=== PATIENT | female | born 1970 | race African-American/Black ===

== ENCOUNTER 2018-09-02 06:11 | Emergency (ER) | payer MEDICARE ==
[2018-09-02] MEDS ORDERED: Acetaminophen 500 MG TAB ONE (07:16)
[2018-09-02] MEDS ORDERED: Dexamethasone 10 MG/ML VIAL ONE (07:16)
[2018-09-02] MEDS ORDERED: Azithromycin 250 MG TAB ONE (07:16)
--- NOTE | 2018-09-02 08:46 | RAD ---
TWO VIEWS OF THE CHEST: Comparison: 06-17-18 History: Upper back pain and cough. FINDINGS: Two views of the chest show normal sized cardiomediastinal silhouette. There is no evidence of consol idation, mass, or pleural effusion. The bones are unremarkable. IMPRESSION: No evidence of acute cardiopulmonary disease. POS: [facility]
== END 2018-09-02 07:43 | disposition home or self-care (01) ==
LOC: ERS 06:11
DX: R05 Cough (principal); I27.9 Pulmonary heart disease, unspecified; I05.9 Rheumatic mitral valve disease, unspecified; I12.0 Hypertensive chronic kidney disease with stage 5 chronic kidney disease or end stage renal disease; N18.6 End stage renal disease; Z79.899 Other long term (current) drug therapy
CPT/HCPCS: 71046; 94640; 96372; J1100; J7620

== ENCOUNTER 2018-12-17 10:39 | Day surgery (SDC) | payer MEDICARE ==
[2018-12-17 23:13] VITALS: BP 105/54; TEMP 98.6
== END 2018-12-17 23:00 | disposition home or self-care (01) ==
LOC: SDC/OP 10:39 → ONC 10:39 → SDC/OP 23:00
PROVIDERS: ATTEND Internal Medicine Nephrology
PROC: 30233N1 Transfusion of Nonautologous Red Blood Cells into Peripheral Vein, Percutaneous Approach (ICD-10-PCS; principal; 2018-12-17)
DX: N18.6 End stage renal disease (principal); D63.1 Anemia in chronic kidney disease; Z88.8 Allergy status to other drugs, medicaments and biological substances
CPT/HCPCS: 36430; 86850; 86900; 86901; 86920; P9016; 36415

== ENCOUNTER 2019-01-04 09:49 | Day surgery (SDC) | payer MEDICARE ==
[2019-01-01 14:20] VITALS: BMI 39.4
[2019-01-04] MEDS ORDERED: Ketamine 50 MG/ML (10ML VIAL) ONE (10:47)
--- NOTE | 2019-01-04 13:35 | OP ---
DATE OF PROCEDURE: 01/04/2019 PROCEDURES PERFORMED: Esophagogastroduodenoscopy/push enteroscopy with control of hemorrhage, snare polypectomy, and submucosal injection of tattoo and biopsy. PREOPERATIVE DIAGNOSES: Chronic GI bleed and anemia of chronic blood loss with abnormal capsule endoscopy showing site of active bleeding in the proximal small intestine. DESCRIPTION OF PROCEDURE: Informed consent was obtained from the patient. She was sedated with total intravenous anesthesia. The colonoscope was used and advanced to the proximal jejunum. The esophagus was normal. The GE junction was normal. The stomach was normal including retroflex views. The pylorus and first portion and second portion of the duodenum were unremarkable. The third portion of the duodenum had a 1 cm flat, slightly depressed polyp with a smooth base. Biopsies were obtained from this. There was a second polyp in the fourth portion of the duodenum. This was actively bleeding throughout the case. This measured around 6 to 7 mm and was grasped with a polypectomy snare and removed by snare cautery polypectomy. There was good hemostasis achieved with the polypectomy. A tattoo was placed next to this polyp in the fourth portion of the duodenum. There were multiple small red spots and possible vascular ectasias throughout the third and fourth portions of the duodenum. The proximal jejunum appeared unremarkable. The third portion of the duodenal polyp was about 8 cm proximal to the polypectomy site and tattoo site in the fourth portion of the duodenum. IMPRESSION: 1. Scattered AVMs and red spots in the third and fourth portions of the duodenum. These were not actively bleeding and left alone. 2. Actively bleeding 6 to 7 mm polyp in the fourth portion of the duodenum that was removed by snare cautery polypectomy with good control of the bleeding. There was no active bleeding following the polypectomy. Tattoo was placed next to this site. 3. 1 cm depressed smooth based polyp in the third portion of the duodenum about 8 cm proximal to the tattoo site. This was biopsied. 4. Otherwise normal esophagogastroduodenoscopy/push enteroscopy. RECOMMENDATIONS: 1. Await histopathology. 2. Follow trend of her hemoglobin. 3. Follow up in GI clinic. Job ID: [id number]
[2019-01-04] MEDS ORDERED: PHENYLEPHRINE-NS 100 MCG/ML 10 ML SYRINGE ONE (15:30)
[2019-01-04] MEDS ORDERED: PROPOFOL 200 MG/20 ML VIAL ONE (15:30)
== END 2019-01-04 13:05 | disposition home or self-care (01) ==
LOC: SDC 09:49
PROVIDERS: ATTEND Internal Medicine Gastroenterology
PROC: 0DB98ZX Excision of Duodenum, Via Natural or Artificial Opening Endoscopic, Diagnostic (ICD-10-PCS; principal; 2019-01-04)
PROC: 0DB98ZX Excision of Duodenum, Via Natural or Artificial Opening Endoscopic, Diagnostic (ICD-10-PCS; 2019-01-04)
PROC: 3E0G8GC Introduction of Other Therapeutic Substance into Upper GI, Via Natural or Artificial Opening Endoscopic (ICD-10-PCS; 2019-01-04)
DX: K29.81 Duodenitis with bleeding (principal); D50.0 Iron deficiency anemia secondary to blood loss (chronic); K31.7 Polyp of stomach and duodenum; K31.819 Angiodysplasia of stomach and duodenum without bleeding; I13.2 Hypertensive heart and chronic kidney disease with heart failure and with stage 5 chronic kidney disease, or end stage renal disease; I50.9 Heart failure, unspecified; N18.6 End stage renal disease; I42.9 Cardiomyopathy, unspecified; Z79.899 Other long term (current) drug therapy; Z88.8 Allergy status to other drugs, medicaments and biological substances; Z91.048 Other nonmedicinal substance allergy status; Z99.2 Dependence on renal dialysis; Z21 Asymptomatic human immunodeficiency virus [HIV] infection status
CPT/HCPCS: 88305; J2704

== ENCOUNTER 2019-02-10 07:52 | Day surgery (SDC) | payer MEDICARE ==
[2019-02-09 13:45] VITALS: BMI 39.0
--- NOTE | 2019-02-10 11:22 | OP ---
DATE OF PROCEDURE: 02/10/2019 PROCEDURES PERFORMED: Esophagogastroduodenoscopy and push enteroscopy with biopsy. PREOPERATIVE DIAGNOSES: Iron deficiency anemia and duodenal polyp followup. DESCRIPTION OF PROCEDURE: Informed consent was obtained from the patient. She was sedated with total intravenous anesthesia. The bite block was placed and the colonoscope was advanced through the mouth to the proximal jejunum. The previous tattoo side in the proximal jejunum showed no residual polyp. About 8 cm proximal to this in either the third or fourth portion of the duodenum was a 1.4 cm flat polyp with the smooth surface. This was the same polyp that was biopsied in previous procedure. This was biopsied again multiple times today. No other bleeding sites were identified in the small intestine. The stomach was unremarkable including retroflex views. A small hiatal hernia was present. The esophagus was unremarkable. IMPRESSION: 1. A 1.4 cm flat polyp with a smooth surface, biopsied. This is located in the third or fourth portion of the duodenum, about 8 cm proximal to the previous tattoo site. 2. No residual polyp at the tattoo site. 3. No other bleeding sites identified. RECOMMENDATIONS: 1. Await histopathology. 2. Follow up in the office. Job ID: [id number]
[2019-02-10] MEDS ORDERED: PROPOFOL 200 MG/20 ML VIAL ONE (15:07)
[2019-02-10] MEDS ORDERED: Lidocaine 1% PF 5 ML VIAL ONE (15:07)
== END 2019-02-10 11:15 | disposition home or self-care (01) ==
LOC: SDC 07:52
PROVIDERS: ATTEND Internal Medicine Gastroenterology
PROC: 0DB98ZX Excision of Duodenum, Via Natural or Artificial Opening Endoscopic, Diagnostic (ICD-10-PCS; principal; 2019-02-10)
DX: D13.2 Benign neoplasm of duodenum (principal); D50.9 Iron deficiency anemia, unspecified; K44.9 Diaphragmatic hernia without obstruction or gangrene; N18.6 End stage renal disease; Z88.8 Allergy status to other drugs, medicaments and biological substances; Z91.09 Other allergy status, other than to drugs and biological substances; Z79.899 Other long term (current) drug therapy
CPT/HCPCS: 88305; J2001; J2704

== ENCOUNTER 2020-10-25 10:51 | Observation (INO) | payer MEDICARE ==
--- NOTE | 2020-10-25 11:45 | RAD ---
CHEST 2 VIEWS: Date: 10/25/2020 HISTORY: Chest pain. FINDINGS: Minimal horizontal linear parenchymal change in the left lower mid lung zone, possibly a small area o f scarring or minimal subsegmental atelectasis. No significant cardiomegaly. No confluent pneumonia, overt edema, or pleural effusion. IMPRESSION: 1. No significant acute intrathoracic disease. 2. Small focus of linear horizontal density in the left lower mid lung zone, possibly a small focus of subsegmental atelectasis or mild scarring since the prior study of 09/02/2018. POS: OFF
[2020-10-25 12:04] LABS: #Eosinphils 0.1 thou/uL (0.0-0.7); #Lymphocytes 1.9 thou/uL (1.20-3.40); #Monocytes 0.8 thou/uL (0.11-0.59); #Neutrophils 8.1 thou/uL (1.40-6.50); %Basophils 0.4 % (0.0-1.0); %Eosinophils 0.7 % (0.0-10.0); %Lymphocytes 17.2 % (21.0-51.0); %Monocytes 7.7 % (0.0-10.0); %Neutrophils 74.1 % (42.0-75.0); Hemoglobin 10.6 g/dL (12.0-16.0); Mean Corpuscular HGB CONC 31.7 g/dL (32.0-36.0); Mean Corpuscular Volume 94.4 fL (78.0-98.0); Mean Platelet Volume 9.8 fL (7.4-10.4); Platelet Count 146 thou/uL (130-400); Red Blood Cell (RBC) Count 3.54 mill/uL (4.20-5.40); White Blood Cell (WBC) Count 10.9 thou/uL (4.8-10.8)
[2020-10-25 12:17] LABS: PTT 29.3 sec (22.9-36.1); Prothrombin Time 13.3 sec (12.0-14.7)
[2020-10-25 12:24] LABS: ALT (SGPT) Less than 7 U/L (8-55); AST (SGOT) 11 U/L (5-34); Albumin 4.2 g/dL (3.5-5.0); Alkaline Phosphatase 69 U/L (40-110); Anion Gap 19 mmol/L (10-20); BUN (Urea Nitrogen) 34 mg/dL (9.8-20.1); Bilirubin, Total 0.8 mg/dL (0.2-1.2); Calc. Creatinine Clearance 0 mL/min (70-130); Calcium 8.9 mg/dL (7.8-10.44); Carbon Dioxide 28 mmol/L (22-29); Chloride 98 mmol/L (98-107); Globulin 4.1 g/dL (2.4-3.5); Glucose 92 mg/dL (70-105); Lipase 54 U/L (8-78); Magnesium 2.1 mg/dL (1.6-2.6); Potassium 4.4 mmol/L (3.5-5.1); Protein, Total 8.3 g/dL (6.0-8.3); Sodium 141 mmol/L (136-145)
[2020-10-25 12:45] LABS: CKMB 0.6 ng/mL (0-6.6)
[2020-10-25] MEDS ORDERED: Iopamidol-370 76% 500 ML 1 ML ONE (12:53)
[2020-10-25] MEDS ORDERED: Iopamidol 370 76% 50 ML VIAL FS ONE (12:56)
--- NOTE | 2020-10-25 15:45 | CT ---
Exam: CTA chest with 3-D rendering: CTA abdomen with 3-D rendering: HISTORY: Epigastric pain. COMPARISON: None TECHNIQUE: CT angiogram of the thoracic and abdominal aorta performed in the axial plane. Three-dimen sional reformatted images are submitted for interpretation. FINDINGS: Chest CT: Mediastinum: No mass, lymphadenopathy or hematoma Heart: Normal heart size. No significant pericardial fluid. Coronary arteries: Significant coronary calcified Trachea and central bronchi: Patent Pleural spaces: No pleural effusion. Right lung: Scarring and atelectasis in the lower lobe Left lung: Scarring and atelectasis in the lower lobe Pneumothorax: None Abdomen CT: Gallbladder: Surgically absent Portal vein: Cannot be assessed due to technique Solid organs: Appropriate arterial phase enhancement of the liver, spleen, pancreas and adrenal gland s Kidneys: Symmetric enhancement. No obstructive uropathy. Mesentery: No mass, lymphadenopathy or free air. There is stranding of the abdominal mesentery adjace nt to the greater curvature of the stomach, the left upper quadrant. This hypodensity focus measures 3.7 x 2.8 cm with attenuation coefficient of 39 Hounsfield units. There is a probable small spine the left upper quadrant measuring 1.1 x 1.1 cm. Alimentary canal: Limited evaluation by the lack of oral contrast. No evidence of a bowel obstruction . Normal ileocecal . Osseous structures: No lytic or blastic lesions. CT ANGIOGRAM: No CT evidence for aortic aneurysm or dissection. IMPRESSION: 1. No CT evidence for aortic aneurysm or aortic dissection. 2. Hypo-attenuation in the left upper quadrant as described above. Attenuation is adjacent to the gre ater curvature stomach. There appears to be continuity. Correlate for possible perforated ulcer. Consider GI consult. Results of study discussed with Taniya Meehan12/26/2019 at 3:40 PM Code CR
[2020-10-25] MEDS ORDERED: Piperacillin/Tazobactam 2.25 GM VIAL ONE (17:16)
[2020-10-25] MEDS ORDERED: Pantoprazole 40 MG VIAL ONE (17:19)
[2020-10-25 19:09] LABS: Iron 24 ug/dL (50-170); Iron Binding Capacity, Total 200 mcg/dL (265-497)
--- NOTE | 2020-10-25 19:13 | HP ---
PRIMARY CARE PHYSICIAN: Dr. Bryce Jacobs. CHIEF COMPLAINT: Chest pain. HISTORY OF PRESENT ILLNESS: The patient is a 50-year-old female with a past medical history significant for end-stage renal disease (), followed by Dr. Napoles, HIV (on HAART therapy), cardiomyopathy, HTN, HLD, and anxiety, who presents to the emergency department for the above complaint. The patient reports the acute onset of chest pain last night, located in the epigastric region, radiating around to the back, exacerbated by lying down, and relieved by sitting up. She trialed Tums with no relief of her symptoms. She reports some associated shortness of breath, nausea. She denies hemoptysis and vomiting. She denies any heart palpitations, lightheadedness, or swelling to lower extremities. She denies any cough, wheezing. Has no history of COPD/asthma. No history of DVT/PE. She denies heavy use of NSAIDs or alcohol intake. No recent surgeries. In the emergency department, the patient presented with stable vital signs. CT angio of the chest was negative for aneurysm and aortic dissection. It did show hypoattenuation in the left upper quadrant of the greater curvature of the stomach, which was correlate for possible perforated ulcer. Her hemoglobin was 10.6, hematocrit 33.5. WBC is 10.9. Coags were within normal limits. General Surgery and GI were consulted in the emergency department and recommended no surgical intervention at this time and trend her hemoglobin throughout the evening. The patient was given 1 L normal saline, Zosyn IVPB, and started on Protonix drip. PAST MEDICAL HISTORY: 1. End-stage renal disease, Tuesdays, , Saturdays, followed by Dr. Napoles. 2. HIV on HAART therapy. 3. Hyperlipidemia. 4. Hypertension. 5. Cardiomyopathy. 6. Anxiety. 7. GERD. PAST SURGICAL HISTORY: 1. Cholecystectomy. 2. Left upper extremity fistula. SOCIAL HISTORY: The patient lives alone. She has no history of heavy alcohol intake, smoking, or illicit drug use. She is retired. She is fully independent, walks without any assistive devices. FAMILY HISTORY: Contributory for cardiac disease, cancer, diabetes. ALLERGIES: 1. HYDROCHLOROTHIAZIDE. 2. ADHESIVES. HOME MEDICATIONS: 1. Protonix 40 mg p.o. daily. 2. Atorvastatin 10 mg p.o. daily. 3. Coreg 25 mg p.o. b.i.d. 4. Lisinopril 10 mg p.o. daily. 5. Tivicay 50 mg daily. 6. Prezcobix 800/150 one tab p.o. daily. REVIEW OF SYSTEMS: All review of systems are negative unless otherwise stated in the HPI. PHYSICAL EXAMINATION: VITAL SIGNS: Temperature 98.6, blood pressure 142/76, heart rate 67, respirations 16, SpO2 is 100% on room air. CONSTITUTIONAL: The patient presented normotensive, appeared comfortable, nontoxic in appearance. HEENT: Head, atraumatic, normocephalic. Eyes, pupils equal, round, and reactive to light. Extraocular muscles intact. Sclerae nonicteric. ENT, oropharynx were clear. Uvula midline. Moist mucous membranes. No pallor. NECK: Full range of motion. No cervical spinous tenderness. Neck was supple. RESPIRATORY/CHEST: Respirations even and unlabored. Clear to auscultation. No rhonchi, wheezes, or rales. CARDIOVASCULAR: S1, S2 appreciated. No murmurs, rubs, or gallops. ABDOMEN: Soft, nontender, nondistended. Active bowel sounds. No guarding. No rigidity. No rebound. Negative Rovsing sign. Negative Abarca sign. No abdominal bruit appreciated. BACK: Full range of motion. No central spinous tenderness. No CVA tenderness. EXTREMITIES: Upper extremities; full range of motion, normal strength, sensation intact, palpable radial pulses. Lower extremities; full range of motion, normal strength, sensation intact, palpable pedal pulses. No swelling. NEUROLOGIC: She was A and O x4. Follows all commands. GCS of 15. PSYCHIATRIC: Denies suicidal or homicidal ideation. A and O x3. LABS AND DIAGNOSTICS: 1. EKG, normal sinus rhythm at 70 beats per minute. LVH, no ST elevations. 2. Chest x-ray was negative for any acute cardiopulmonary process. 3. CTA chest was negative for any aneurysm or aortic dissection. There was a hypoattenuation in the left upper quadrant adjacent to the greater curvature of the stomach, correlate for possible perforated ulcer. Sodium 141, potassium 4.4, chloride 98, carbon dioxide 28, BUN 34, creatinine 10.12, GFR 5, glucose 92, lactic acid 1.1, calcium 8.9, magnesium 2.1, total bilirubin 0.8, AST 11, ALT less than 7, alkaline phosphatase 69, troponin 0.034, CK-MB 0.6. Lipase was 54. Albumin 4.2. WBCs 10.9, hemoglobin 10.6, hematocrit 33.5, platelets 146. PT 13.3, INR 1.0, APTT 29.3. IMPRESSION: 1. Perforated gastric ulcer. 2. End-stage renal disease. 3. Human immunodeficiency virus on highly active antiretroviral therapy. 4. Cardiomyopathy. 5. Hypertension. 6. Anxiety. 7. Gastroesophageal reflux disease. PLAN: CT chest positive for gastric perforated ulcer. Hemoglobin and hematocrit stable in the ER. GI and General Surgery were consulted by ER MD and recommended to trend H and H. No surgical intervention at this time. The patient was given Zosyn and started on Protonix drip along with 1 L normal saline. We will consult GI and General Surgery. We will continue IV fluid at maintenance infusion rate. We will continue PPI drip. We will trend H and H. Make the patient n.p.o. Continue Zosyn IVPB. Check iron studies along with H pylori. In terms of her end-stage renal disease, consult Nephrology for maintenance hemodialysis, which her regular schedule is Tuesdays//Saturdays with Dr. Napoles. In terms of her HIV, we will restart her home medication of Tivicay and Prezcobix. In terms of her cardiomyopathy and hypertension, we will restart her home medications of Coreg and lisinopril. No pharmacological DVT prophylaxis. SCDs for DVT prophylaxis. Full code. Discussed the case with Dr. Mcmullen. Job ID: [id number]
--- NOTE | 2020-10-25 19:27 | CT ---
CT Abdomen WO Con: 10/25/2020 7:05 PM HISTORY: Possible perforated gastric ulcer. Fluid collection seen adjacent stomach COMPARISON: 10/25/2020 at 3:19 PM TECHNIQUE: Multiple contiguous axial images were obtained and a CT of the abdomen without IV contrast. Coronal a nd sagittal reformats were performed. FINDINGS: This examination is limited for the evaluation of solid organs and vascular structures due to the lac k of intravenous contrast. Lower Chest: within normal limits. Abdomen: Liver: within normal limits. Bile Ducts: Normal caliber. Gallbladder: Removed Pancreas: within normal limits. Spleen: within normal limits. Adrenals: within normal limits. Kidneys: Small and atrophic. Bowel: Normal caliber. Contrast is seen in the stomach and small bowel. No contrast is seen within th e fluid collection between the pancreas and greater curvature of the stomach. Scattered diverticula in the colon. Mesenteric Lymph Nodes: No enlarged mesenteric lymph nodes. Peritoneum: No free air or free fluid. Vessels: Normal caliber aorta Retroperitoneum: within normal limits. Abdominal Wall: Small fat-containing umbilical hernia. Bones: Degenerative changes in the spine. IMPRESSION: 1. The fluid collection between the stomach and spleen does not fill with contrast and is nonspecific . 2. Diverticulosis 3. Atrophic kidneys 4. Umbilical hernia
[2020-10-25] MEDS ORDERED: Morphine 2 MG/ML VIAL SLOW IVP PRN (19:30)
[2020-10-25 19:37] LABS: Ferritin 1296.42 ng/mL (10-291)
[2020-10-25] MEDS ORDERED: Morphine 2 MG/ML VIAL SLOW IVP SCH (19:45)
--- NOTE | 2020-10-25 19:56 | CON ---
DATE OF CONSULTATION: CONSULTING PHYSICIAN: Yesika Bassett MD REQUESTING PHYSICIAN: ER physician. REASON FOR CONSULTATION: Need for maintenance hemodialysis. IMPRESSION: 1. End-stage renal disease on Friday, , Friday schedule. 2. Chest pain, likely dyspeptic pain. PLAN: 1. No emergent indication for hemodialysis. Therefore, we will hold off on treatment in this patient on a Friday, , and Friday schedule, likely with heparin given the question of possible perforated ulcer. 2. Further management to be dependent on the clinical course. HISTORY OF PRESENT ILLNESS: A 50-year-old female patient with end-stage renal disease, hemodialysis dependent, who presented here with chest pain, initially thought to be related to possible dissection of aortic aneurysm, which has been ruled out. Now, suspicion of possible perforated ulcer is being entertained. The need for maintenance hemodialysis necessitated the need for renal consultation. PAST MEDICAL HISTORY: Significant for end-stage renal disease, hemodialysis dependent; dyslipidemia; HIV infection. MEDICATIONS: Reviewed and documented on [facility]. ALLERGIES: ADHESIVE AND HYDROCHLOROTHIAZIDE. FAMILY HISTORY: Nonsignificantly related to present illness. SOCIAL HISTORY: No alcohol. No tobacco. No illicit drug use. REVIEW OF SYSTEMS: As documented in the body of the history. All the other systems were reviewed and found not to be significantly related to present illness. PHYSICAL EXAMINATION: GENERAL: The patient was found not to be in any obvious distress, hemodynamically stable. HEENT: Unremarkable. CARDIOVASCULAR SYSTEM: First and second heart sounds were heard. RESPIRATORY SYSTEM: Clear to auscultation. DIGESTIVE SYSTEM: Revealed a benign abdomen. Positive bowel sounds. EXTREMITIES: No peripheral edema. SKIN: No new gross rash. LYMPHATICS: No peripheral lymphadenopathy. SUMMARY: A 50-year-old female patient with end-stage renal disease, who presented here with likely dyspeptic chest pain. Thank you for this consultation. We will follow with you. Job ID: [id number]
[2020-10-25 22:00] LABS: Troponin I 0.025 ng/mL (< 0.028)
[2020-10-25] MEDS ORDERED: Ondansetron ODT 4 MG TAB PO PRN (22:19)
[2020-10-25] MEDS ORDERED: Acetaminophen 325 MG TAB PO PRN (22:19)
[2020-10-25] MEDS ORDERED: Acetaminophen 650 MG Suppository PR PRN (22:19)
[2020-10-25] MEDS ORDERED: Ondansetron PF 4 MG/2 ML Vial IVP PRN (22:19)
[2020-10-25 22:28] VITALS: BMI 38.7
[2020-10-25] MEDS: Sodium Chloride 0.9% 1,000 ML IV SCH (23:11)
[2020-10-26 00:55] LABS: Hemoglobin 9.5 g/dL (12.0-16.0)
[2020-10-26 01:20] LABS: Troponin I 0.026 ng/mL (< 0.028)
[2020-10-26] MEDS ORDERED: Piperacillin/Tazobactam 2.25 GM in Sodium Chloride 0.9% 100 ML IVPB SCH (06:00)
[2020-10-26 06:04] LABS: SARS-CoV-2 MS2 Positive; SARS-CoV-2 N Gene Negative; SARS-CoV-2 S Gene Negative; SARS-CoV-2 by NAA Not Detected (NotDetected); SARS-CoV-2 orf1ab Negative
[2020-10-26] MEDS: Sodium Chloride 0.9% 1,000 ML IV SCH ×2 (06:17→12:18)
[2020-10-26 08:42] VITALS: BP 105/74; TEMP 98
[2020-10-26] MEDS ORDERED: Iron, Sodium Ferric Gluconate 250 MG in Sodium Chloride 0.9% 100 ML IVPB SCH ×2 (09:00→16:00)
[2020-10-26 09:10] LABS: #Eosinphils 0.1 thou/uL (0.0-0.7); #Lymphocytes 1.5 thou/uL (1.20-3.40); #Monocytes 0.8 thou/uL (0.11-0.59); #Neutrophils 9.1 thou/uL (1.40-6.50); %Basophils 0.3 % (0.0-1.0); %Eosinophils 0.5 % (0.0-10.0); %Monocytes 6.8 % (0.0-10.0); %Neutrophils 79.3 % (42.0-75.0); Hemoglobin 10.2 g/dL (12.0-16.0); Mean Corpuscular HGB CONC 32.2 g/dL (32.0-36.0); Mean Corpuscular Hemoglobin 30.8 pg (27.0-31.0); Mean Corpuscular Volume 95.7 fL (78.0-98.0); Mean Platelet Volume 10.3 fL (7.4-10.4); Platelet Count 130 thou/uL (130-400); Red Blood Cell (RBC) Count 3.31 mill/uL (4.20-5.40); White Blood Cell (WBC) Count 11.4 thou/uL (4.8-10.8)
[2020-10-26 09:32] LABS: Anion Gap 24 mmol/L (10-20); BUN (Urea Nitrogen) 52 mg/dL (9.8-20.1); Calc. Creatinine Clearance 11 mL/min (70-130); Calcium 8.3 mg/dL (7.8-10.44); Carbon Dioxide 22 mmol/L (22-29); Chloride 101 mmol/L (98-107); Glucose 77 mg/dL (70-105); Potassium 5.8 mmol/L (3.5-5.1); Sodium 141 mmol/L (136-145)
[2020-10-26] MEDS ORDERED: PROVENTIL INHALER 6.7 G (200 INHALATIONS) INH PRN (11:55)
[2020-10-26] MEDS ORDERED: Piperacillin/Tazobactam 1.125 GM in Sodium Chloride 0.9% 100 ML IVPB SCH (12:00)
[2020-10-26] MEDS ORDERED: Calcium Acetate 667 MG CAP PO SCH (12:00)
[2020-10-26 14:07] LABS: Hemoglobin 10.2 g/dL (12.0-16.0)
[2020-10-26] MEDS ORDERED: Carvedilol 6.25 MG TAB PO SCH (17:00)
--- NOTE | 2020-10-26 20:06 | PDOC.DS.DS ---
Provider - Provider Date of Admission: 10/25/20 17:22 Date of Discharge: 10/26/20 Admitting Provider: Alma Mcmullen MD Consultations: Nephrology, None Primary Care Physician: Bryce Jacobs DO Course - Hospital Course Hospital Course: Patient is a 50-year-old female with end-stage renal disease on hemodialysis, HIV, hypertension and hyperlipidemia presented to the emergency room with epigastric/chest discomfort. Please refer to the history and physical for further details. Chest x-ray in the emergency room was negative for infiltrate. She underwent aortic dissection protocol that was negative for aortic dissection or aneurysm. It showed some attenuation adjacent to the greater curvature of the stomach for possible perforated ulcer. The case was discussed with gastroenterology who recommended dedicated CT scan of the abdomen and p shannan which showed fluid collection between the stomach and the spleen which does not fail with the contrast and is nonspecific. The case was discussed with gastroenterology Dr. Reagan who recommended outpatient follow-up. Abdominal pain has significantly improved. Lipase was normal. She also underwent dialysis per nephrology. She was found to have folic acid deficiency for which she was started on replacement. She understands above plan of care. Final diagnosis: Epigastric pain of unclear etiology End-stage renal disease on hemodialysis HIV on HAART Folic acid deficiency Hypertension Hyperlipidemia Anxiety GERD Obesity with a BMI of 38.7 Hyperkalemia Chronic anemia due to renal insufficiency Resuscitation Status: 10/25/20 22:19 Resuscitation Status Routine Co-Sign Provider: Resuscitation Status: FULL: Full Resuscitation Discussed with: patient - Labs Lab Results: 10/26/20 13:47 10/26/20 08:52 Abnormal Lab Results - Last 48 hrs 10/25/20 11:54: Troponin I 0.034 H 10/25/20 11:54: BUN 34 H, Creatinine 10.12 H, ALT Less than 7 L, Globulin 4.1 H, Albumin/Globulin Ratio 1.0 L 10/25/20 11:54: WBC 10.9 H, RBC 3.54 L, Hgb 10.6 L, Hct 33.5 L, MCHC 31.7 L, RDW 16.0 H, Lymphocytes % 17.2 L, Neutrophils # 8.1 H, Monocytes # 0.8 H 10/25/20 18:34: Iron 24 L, TIBC 200 L, % Saturation 12 L 10/25/20 18:34: Ferritin 1296.42 H 10/25/20 18:34: Folate 6.30 L 10/26/20 00:44: Hgb 9.5 L, Hct 29.4 L 10/26/20 08:52: Potassium 5.8 H, Anion Gap 24 H, BUN 52 H, Creatinine 12.01 H 10/26/20 08:52: WBC 11.4 H, RBC 3.31 L, Hgb 10.2 L, Hct 31.7 L, RDW 16.0 H, Neutrophils % 79.3 H, Lymphocytes % 13.0 L, Neutrophils # 9.1 H, Monocytes # 0.8 H 10/26/20 13:47: Hgb 10.2 L, Hct 30.3 L Microbiology - Entire Visit 10/25/20 16:38 Venous blood - Right Hand Blood Culture - Preliminary Specimen has been received and culture in progress. No Growth to date. 10/25/20 16:38 Venous blood - Right Arm Blood Culture - Preliminary Specimen has been received and culture in progress. No Growth to date. - Physical Exam Vitals: Vital Signs (12 hours) Temp Pulse Resp BP Pulse Ox 10/26/20 08:41 98.0 F 76 12 105/74 98 Weight Weight 269 lb 8 oz Physical Exam: The patient was seen and examined on the day of discharge. Plan - Discharge Medications Prescriptions: Folic Acid [Folvite] 1 mg PO DAILY #30 tab traMADol HCl [Tramadol HCl] 50 mg PO Q6H PRN #14 tablet PRN Reason: Severe Pain (7-10) Home Medications: Medication Instructions Recorded Confirmed Type Calcium Acetate 2 cap PO TID-WM 01/01/19 10/25/20 History Darunavir/Cobicistat [Prezcobix 1 tab PO 1200 01/01/19 10/25/20 History 800 mg-150 mg Tablet] Dolutegravir Sodium [Tivicay] 50 mg PO 1200 01/01/19 10/25/20 History Pantoprazole Sodium 40 mg PO DAILY 01/01/19 10/25/20 History Albuterol Sulfate [Ventolin HFA] 2 puff INH Q4H PRN 10/25/20 10/25/20 History Atorvastatin Calcium 10 mg PO HS 10/25/20 10/25/20 History Carvedilol 25 mg PO BID 10/25/20 10/25/20 History Cetirizine HCl [Zyrtec] 10 mg PO DAILY 10/25/20 10/25/20 History Doxycycline Hyclate 50 mg PO HS 10/25/20 10/25/20 History Lisinopril [Zestril] 10 mg PO DAILY 10/25/20 10/25/20 History Vit D3-Vit K/Berberine/Hops 2,000 unit PO DAILY 10/25/20 10/25/20 History [Ostera Tablet] Folic Acid [Folvite] 1 mg PO DAILY #30 tab 10/26/20 Rx traMADol HCl [Tramadol HCl] 50 mg PO Q6H PRN #14 tablet 10/26/20 Rx Allergies: adhesive Allergy (Verified 10/25/20 22:25) hydrochlorothiazide Allergy (Verified 10/25/20 22:25) Rash - Discharge Instructions Discharge Instructions:: FOCUS: Transition from Acute Care after Discharge GOAL: Successful transition to care in the community YOUR TASKS: (1) review all information outlined in your discharge packet (2) follow any instructions outlined in your discharge packet (3) contact your primary care provider if you have questions or need additional assistance - Follow up Plan Referrals: Jaycob Gonzalez MD [Active] - 14 Days Bryce Jacobs DO [Primary Care Provider] - 7 Days Disposition: HOME Quality - Care Measures CORE MEASURES:: N/A
[2020-10-26] MEDS ORDERED: Doxycycline 100 MG CAP PO SCH (21:00)
[2020-10-26] MEDS ORDERED: Atorvastatin Calcium 10 MG TAB PO SCH (21:00)
[2020-10-27] MEDS ORDERED: Loratadine 10 MG TAB PO SCH (09:00)
[2020-10-27] MEDS ORDERED: Folic Acid 1 MG TAB PO SCH (09:00)
[2020-10-27] MEDS ORDERED: Cyanocobalamin (Vitamin B-12) 1,000 MCG TAB PO SCH (09:00)
[2020-10-27] MEDS ORDERED: Lisinopril 10 MG TAB PO SCH (09:00)
[2020-10-27] MEDS ORDERED: Non-Formulary Item 1 EACH (Vit D3-Vit K/Berberine/Hops [Ostera Tablet] 1 TABLET Tablet) PO SCH (09:00)
[2020-10-27] MEDS ORDERED: DOLUTEGRAVIR SODIUM PO SCH ×2 (12:00)
[2020-10-27] MEDS ORDERED: Darunavir/Cobicistat [Prezcobix 800 Mg-150 Mg Tablet] PO SCH (12:00)
--- NOTE | 2020-10-27 13:46 | PRG ---
DATE OF SERVICE: 10/27/2020 SUBJECTIVE: The patient noted with the following vital signs. OBJECTIVE: VITAL SIGNS: Afebrile, temperature of 98, pulse 76, respiratory rate of 12, O2 saturations of 98% with a blood pressure of 116/70. HEENT: Unremarkable. CARDIOVASCULAR SYSTEM: First and second heart sounds were heard. RESPIRATORY SYSTEM: Clear to auscultation. DIGESTIVE SYSTEM: Revealed a benign abdomen. Positive bowel sounds. EXTREMITIES: No peripheral edema SKIN: No new gross rash. LYMPHATICS: No peripheral lymphadenopathy. LABORATORY INVESTIGATION: Showed a hemoglobin of 10.2. Chemistry showed a creatinine of with potassium of 5.8 with BUN of 53. FINAL IMPRESSION: 1. End-stage renal disease. 2. Chest pain. 3. Dyspepsia. PLAN: 1. The patient to be dialyzed today Friday, , Friday schedule. 2. Further management to be dependent on the clinical course. Job ID: [id number]
[2020-10-30 18:12] LABS: H. pylori IgA ABS Less than 9.0 units (0.0-8.9); H. pylori IgG ABS 0.12 (0.00-0.79); H. pylori IgM ABS Less than 9.0 units (0.0-8.9)
== END 2020-10-26 16:40 | disposition home or self-care (01) ==
LOC: ERS 10:51 → SURG B 17:22
PROVIDERS: ADMIT Internal Medicine; ATTEND Internal Medicine
DX: K25.9 Gastric ulcer, unspecified as acute or chronic, without hemorrhage or perforation (principal); I12.0 Hypertensive chronic kidney disease with stage 5 chronic kidney disease or end stage renal disease; N18.6 End stage renal disease; D63.1 Anemia in chronic kidney disease; K57.90 Diverticulosis of intestine, part unspecified, without perforation or abscess without bleeding; K42.9 Umbilical hernia without obstruction or gangrene; I42.9 Cardiomyopathy, unspecified; E78.5 Hyperlipidemia, unspecified; F41.9 Anxiety disorder, unspecified; K21.9 Gastro-esophageal reflux disease without esophagitis; E53.8 Deficiency of other specified B group vitamins; E66.9 Obesity, unspecified; Z68.38 Body mass index [BMI] 38.0-38.9, adult; Z21 Asymptomatic human immunodeficiency virus [HIV] infection status; Z79.899 Other long term (current) drug therapy; Z88.8 Allergy status to other drugs, medicaments and biological substances; Z91.048 Other nonmedicinal substance allergy status; Z99.2 Dependence on renal dialysis; Z20.828 Contact with and (suspected) exposure to other viral communicable diseases
CPT/HCPCS: 71046; 71275; 74150; 74174; 80048; 80053; 82553; 82607; 82728; 82746; 83540; 83550; 83605; 83690; 83735; 83880; 84443; 84484 ×3; 85014 ×2; 85018 ×2; 85025 ×2; 85610; 85730; 86677 ×3; 86850; 86900; 86901; 87040; 93005; 94760; 96365; 96367; 96376; 99285; J2270; U0003; 36415; 87635; 90935; 96366; 96375; C9113; G0257; G0378; J2405; J2543; J3490; Q9967

== ENCOUNTER 2021-12-24 10:01 | Outpatient (CLI) | payer MEDICARE | END 2021-12-24 10:02 | disposition home or self-care (01) | LOC: DTY/OP 10:01 | PROVIDERS: ATTEND Physician Assistant | DX: N18.6 End stage renal disease (principal); Z71.3 Dietary counseling and surveillance | CPT/HCPCS: 97802 ==

== ENCOUNTER 2022-08-21 10:41 | Outpatient (CLI) | payer MEDICARE, OTHER | END 2022-08-21 10:42 | disposition home or self-care (01) | LOC: BICRAD 10:41 | PROVIDERS: ATTEND Nurse Practitioner Family | DX: M25.562 Pain in left knee (principal) ==

== ENCOUNTER 2023-09-08 08:40 | Outpatient (CLI) | payer MEDICARE, OTHER | END 2023-09-08 08:41 | disposition home or self-care (01) | LOC: BICMAMMO 08:40 | PROVIDERS: ATTEND Nurse Practitioner Family | DX: Z12.31 Encounter for screening mammogram for malignant neoplasm of breast (principal) | CPT/HCPCS: 77063; 77067 ==

== ENCOUNTER 2024-03-14 13:49 | Inpatient (IN) | payer MEDICARE, OTHER ==
[2024-03-14] MEDS ORDERED: hydrALAZINE 20 MG/ML VIAL ONE (14:34)
[2024-03-14 15:09] LABS: Hematocrit 32.2 % (36.0-47.0); Mean Corpuscular HGB CONC 31.1 g/dL (32.0-36.0); Mean Corpuscular Hemoglobin 27.5 pg (27.0-31.0); Mean Corpuscular Volume 88.7 fL (78.0-98.0); Mean Platelet Volume 12.8 fL (7.4-10.4); Platelet Count 162 10x3/uL (130-400); RBC Distribution Width 15.2 % (11.5-14.5); Red Blood Cell (RBC) Count 3.63 mill/uL (4.20-5.40)
[2024-03-14] MEDS ORDERED: Acetaminophen 500 MG TAB ONE (15:11)
[2024-03-14 15:20] LABS: Anion Gap 18 mmol/L (10-20); Calcium 9.6 mg/dL (7.8-10.44); Carbon Dioxide 26 mmol/L (22-29); Chloride 102 mmol/L (98-107); Glucose 102 mg/dL (70-105); Protein, Total 7.3 g/dL (6.0-8.3); Sodium 142 mmol/L (136-145)
[2024-03-14 15:26] LABS: Hypochromia SLIGHT = 6-15 cells HPF (0-5); Large Platelets 6.1 % (0-5); Lymphocytes 17 % (21-51); Monocytes 3 % (0-10); Neutrophil 80 % (42-75); Platelet Adequacy Comment Platelets Normal; Polychromasia SLIGHT = 2-3 cells HPF (0-2); Target Cells SLIGHT = 2-5 cells HPF (0-1)
[2024-03-14 15:26] LABS: Troponin I 0.054 ng/mL (< 0.028)
[2024-03-14 15:44] LABS: Albumin 3.5 g/dL (3.5-5.0)
[2024-03-14 15:45] LABS: Globulin 4.4 g/dL (2.4-3.5)
[2024-03-14 15:48] LABS: Alkaline Phosphatase 63 U/L (40-110); Bilirubin, Total 0.8 mg/dL (0.2-1.2)
[2024-03-14 15:49] LABS: BUN (Urea Nitrogen) 27 mg/dL (9.8-20.1); Calc. Creatinine Clearance 0 mL/min (70-130); Estimated GFR 5
[2024-03-14 15:51] LABS: ALT (SGPT) 6 U/L (8-55); AST (SGOT) 13 U/L (5-34)
[2024-03-14] MEDS: Heparin 5,000 UNITS/ML VIAL SC SCH (20:33)
[2024-03-14] MEDS: hydrALAZINE 25 MG TAB PO SCH (20:33)
[2024-03-14] MEDS: Famotidine 20 MG TAB PO SCH (20:33)
[2024-03-14] MEDS ORDERED: hydrALAZINE 25 MG TAB PO SCH (21:00)
[2024-03-14 23:08] LABS: Troponin I 0.062 ng/mL (< 0.028)
[2024-03-15 04:44] LABS: #Basophils 0.05 10x3/uL (0.0-0.2); %Basophils 0.7 % (0.0-1.0); %Eosinophils 1.9 % (0.0-10.0); %Lymphocytes 25.2 % (21.0-51.0); %Monocytes 12.7 % (0.0-10.0); %Neutrophils 59.1 % (42.0-75.0); Hematocrit 29.8 % (36.0-47.0); Hemoglobin 9.2 g/dL (12.0-16.0); Mean Corpuscular HGB CONC 30.9 g/dL (32.0-36.0); Mean Corpuscular Hemoglobin 27.8 pg (27.0-31.0); Platelet Count 148 10x3/uL (130-400); RBC Distribution Width 15.4 % (11.5-14.5); Red Blood Cell (RBC) Count 3.31 mill/uL (4.20-5.40)
[2024-03-15 04:55] LABS: Anion Gap 18 mmol/L (10-20); BUN (Urea Nitrogen) 40 mg/dL (9.8-20.1); Calc. Creatinine Clearance 11 mL/min (70-130); Calcium 9.5 mg/dL (7.8-10.44); Carbon Dioxide 24 mmol/L (22-29); Cardiac Risk 3.4 (Less than 4.5); Chloride 103 mmol/L (98-107); Cholesterol 126 mg/dl (< 200 Desired); Estimated GFR 4; Glucose 85 mg/dL (70-105); HDL Cholesterol 37 mg/dL (>60 Neg Risk); LDL Cholesterol, Calculated 72 mg/dL; Potassium 4.4 mmol/L (3.5-5.1); Sodium 141 mmol/L (136-145); Triglycerides 87 mg/dL (Less than 150)
[2024-03-15 07:28] VITALS: BMI 36.0
[2024-03-15] MEDS: Lisinopril 5 MG TAB PO SCH (09:07)
[2024-03-15 12:13] LABS: HBSAB Concentration 17.47 mIU/mL; HBsAg Index 0.29 S/CO (0-0.99); Hep B Core Total Ab NONREACTIVE (NonReactive); Hep B Core Total Index 0.15 S/CO (0-0.79); Hep B Surf AB REACTIVE (NonReactive); Hep B Surf Ag NONREACTIVE S/CO (NonReactive); Hep C IgG Ab NONREACTIVE S/CO (NonReactive); Hep C Index 0.12 S/CO (0-0.79)
[2024-03-15] MEDS ORDERED: Albuterol 200 PUFF (6.7GM INHALER) INH PRN (14:15)
[2024-03-15] MEDS: Acetaminophen 325 MG TAB PO PRN (17:21)
[2024-03-15] MEDS: Ibuprofen 200 MG TAB PO PRN (18:20)
[2024-03-15] MEDS ORDERED: Morphine 2 MG/ML VIAL SLOW IVP PRN (18:27)
[2024-03-15] MEDS: Nitroglycerin 0.4 MG TAB (25 Tab Bottle) SL PRN (18:39)
[2024-03-15 19:55] LABS: Troponin I 0.073 ng/mL (< 0.028)
[2024-03-15] MEDS: Atorvastatin Calcium 10 MG TAB PO SCH (20:39)
[2024-03-16 04:29] LABS: #Basophils 0.04 10x3/uL (0.0-0.2); %Basophils 0.6 % (0.0-1.0); %Eosinophils 2.3 % (0.0-10.0); %Lymphocytes 25.5 % (21.0-51.0); %Monocytes 11.5 % (0.0-10.0); %Neutrophils 59.8 % (42.0-75.0); Hematocrit 30.9 % (36.0-47.0); Hemoglobin 9.6 g/dL (12.0-16.0); Mean Corpuscular HGB CONC 31.1 g/dL (32.0-36.0); Mean Corpuscular Hemoglobin 27.4 pg (27.0-31.0); Platelet Count 135 10x3/uL (130-400); RBC Distribution Width 15.6 % (11.5-14.5); Red Blood Cell (RBC) Count 3.51 mill/uL (4.20-5.40)
[2024-03-16 04:59] LABS: Troponin I 0.057 ng/mL (< 0.028)
[2024-03-16 05:41] VITALS: BMI 36.3
[2024-03-16 06:24] LABS: Anion Gap 19 mmol/L (10-20); BUN (Urea Nitrogen) 57 mg/dL (9.8-20.1); Calc. Creatinine Clearance 9 mL/min (70-130); Calcium 9.9 mg/dL (7.8-10.44); Carbon Dioxide 24 mmol/L (22-29); Chloride 101 mmol/L (98-107); Estimated GFR 3; Glucose 85 mg/dL (70-105); Potassium 4.6 mmol/L (3.5-5.1); Sodium 139 mmol/L (136-145)
[2024-03-16] MEDS: Pantoprazole DR 40 MG TAB PO SCH (07:59)
[2024-03-16] MEDS: Carvedilol 6.25 MG TAB PO SCH (07:59)
[2024-03-16] MEDS ORDERED: Heparin 10,000 UNITS/ 10 ML VIAL ONE (08:36)
[2024-03-16] MEDS ORDERED: Prezcobix 800 Mg-150 Mg Tablet PO SCH (12:00)
[2024-03-16] MEDS ORDERED: Dolutegravir Sodium [Tivicay] PO SCH (12:00)
[2024-03-16 15:42] VITALS: BP 158/93; TEMP 98.3
== END 2024-03-16 17:15 | disposition home or self-care (01) | DRG 291 ==
LOC: ERS 13:49 → 2SW 17:12 → OBSVTOIN 03-15 15:58
PROVIDERS: ADMIT Family Medicine; ATTEND Internal Medicine
DX: I11.0 Hypertensive heart disease with heart failure (principal); I50.33 Acute on chronic diastolic (congestive) heart failure; N18.6 End stage renal disease; B20 Human immunodeficiency virus [HIV] disease; I42.9 Cardiomyopathy, unspecified; E78.5 Hyperlipidemia, unspecified; K21.9 Gastro-esophageal reflux disease without esophagitis; F41.9 Anxiety disorder, unspecified; N05.9 Unspecified nephritic syndrome with unspecified morphologic changes; D63.1 Anemia in chronic kidney disease; M06.1 Adult-onset Still's disease; E66.01 Morbid (severe) obesity due to excess calories; Z90.49 Acquired absence of other specified parts of digestive tract; Z98.890 Other specified postprocedural states; Z82.49 Family history of ischemic heart disease and other diseases of the circulatory system; Z83.3 Family history of diabetes mellitus; Z99.2 Dependence on renal dialysis; Z88.8 Allergy status to other drugs, medicaments and biological substances; Z79.51 Long term (current) use of inhaled steroids; Z79.899 Other long term (current) drug therapy; Z68.36 Body mass index [BMI] 36.0-36.9, adult
CPT/HCPCS: 36415; 36416; 71045; 80048; 80053; 80061; 83880; 84484; 85025; 86704; 86706; 86803; 87340; 93005; 93010; 93306; 96374; J0360; J1644

== ENCOUNTER 2024-09-21 10:31 | Emergency (ER) | payer MEDICARE, OTHER ==
[2024-09-21] MEDS ORDERED: Iopamidol-370 76% 500 ML MDV (1 ML CHARGE) ONE (11:42)
[2024-09-21 12:04] LABS: Actual Bicarbonate (HCO3v) 28.2 mEq/L (22-28); Base Excess 5.8 mEq/L (-2.0 to +3.0); Calcium, Ionized (venous) 1.14 mmol/L (1.16-1.32); Chloride (VBG) 96 mmol/L (98-106); Hematocrit-VBG 34 % (36.0-47.0); Hemoglobin (Hb) 11.4 g/dL (11.7-16.0); Sodium 138 mmol/L (133-146); pH (venous) 7.548 (7.32-7.43)
[2024-09-21 12:40] LABS: Troponin I 0.015 ng/mL (< 0.028)
[2024-09-21 12:41] LABS: #Basophils 0.04 10x3/uL (0.0-0.2); #Eosinophils Less than 0.03 10x3/uL (0.0-0.7); %Basophils 0.5 % (0.0-1.0); %Eosinophils 0.3 % (0.0-10.0); %Lymphocytes 11.7 % (21.0-51.0); %Monocytes 8.1 % (0.0-10.0); %Neutrophils 78.9 % (42.0-75.0); Hematocrit 36.9 % (36.0-47.0); Hemoglobin 10.4 g/dL (12.0-16.0); Mean Corpuscular HGB CONC 28.2 g/dL (32.0-36.0); Mean Corpuscular Hemoglobin 23.4 pg (27.0-31.0); Mean Corpuscular Volume 82.9 fL (78.0-98.0); Platelet Count 214 10x3/uL (130-400); RBC Distribution Width 17.3 % (11.5-14.5); Red Blood Cell (RBC) Count 4.45 mill/uL (4.20-5.40)
[2024-09-21 13:00] LABS: ALT (SGPT) Less than 5 U/L (8-55); AST (SGOT) 10 U/L (5-34); Albumin 3.1 g/dL (3.5-5.0); Alkaline Phosphatase 65 U/L (40-110); Anion Gap 17 mmol/L (10-20); BUN (Urea Nitrogen) 15 mg/dL (9.8-20.1); Bilirubin, Total 1.1 mg/dL (0.2-1.2); Calc. Creatinine Clearance 0 mL/min (70-130); Calcium 10.5 mg/dL (7.8-10.44); Carbon Dioxide 24 mmol/L (22-29); Chloride 98 mmol/L (98-107); Estimated GFR 10; Globulin 5.3 g/dL (2.4-3.5); Glucose 92 mg/dL (70-105); Potassium 3.7 mmol/L (3.5-5.1); Protein, Total 8.4 g/dL (6.0-8.3); Sodium 135 mmol/L (136-145)
[2024-09-21] MEDS ORDERED: Ipratropium Bromide 2.5 ml Neb ONE (13:28)
[2024-09-21] MEDS ORDERED: Albuterol 2.5 MG (0.5 mL) NEB ONE (13:28)
[2024-09-21 13:37] LABS: Platelet Adequacy Comment Platelets Normal; Polychromasia SLIGHT = 2-3 cells HPF (0-2)
== END 2024-09-21 14:45 | disposition home or self-care (01) ==
LOC: ERS 10:31
DX: R06.02 Shortness of breath (principal); R42 Dizziness and giddiness; I13.2 Hypertensive heart and chronic kidney disease with heart failure and with stage 5 chronic kidney disease, or end stage renal disease; N18.6 End stage renal disease; I50.9 Heart failure, unspecified; B20 Human immunodeficiency virus [HIV] disease; Z99.2 Dependence on renal dialysis; Z55.6 Problems related to health literacy; Z75.3 Unavailability and inaccessibility of health-care facilities; Z79.899 Other long term (current) drug therapy
CPT/HCPCS: 71045; 71275; 80053; 82805; 83880; 84484; 85025; 93005; J7644; 36415; J7611

== ENCOUNTER 2024-09-27 12:17 | Emergency (ER) | payer MEDICARE, OTHER ==
[2024-09-27 15:47] LABS: #Basophils 0.06 10x3/uL (0.0-0.2); %Basophils 1.1 % (0.0-1.0); %Eosinophils 1.7 % (0.0-10.0); %Lymphocytes 18.5 % (21.0-51.0); %Monocytes 13.2 % (0.0-10.0); %Neutrophils 65.1 % (42.0-75.0); Hematocrit 37.5 % (36.0-47.0); Hemoglobin 10.9 g/dL (12.0-16.0); Mean Corpuscular HGB CONC 29.1 g/dL (32.0-36.0); Mean Corpuscular Hemoglobin 23.4 pg (27.0-31.0); Mean Corpuscular Volume 80.6 fL (78.0-98.0); Mean Platelet Volume 10.5 fL (7.4-10.4); Platelet Count 160 10x3/uL (130-400); RBC Distribution Width 17.3 % (11.5-14.5); Red Blood Cell (RBC) Count 4.65 mill/uL (4.20-5.40)
[2024-09-27 16:04] LABS: ALT (SGPT) Less than 5 U/L (8-55); AST (SGOT) 11 U/L (5-34); Albumin 3.3 g/dL (3.5-5.0); Alkaline Phosphatase 73 U/L (40-110); Anion Gap 15 mmol/L (10-20); BUN (Urea Nitrogen) 14 mg/dL (9.8-20.1); Bilirubin, Total 0.6 mg/dL (0.2-1.2); Calc. Creatinine Clearance 0 mL/min (70-130); Calcium 10.2 mg/dL (7.8-10.44); Carbon Dioxide 28 mmol/L (22-29); Chloride 98 mmol/L (98-107); Estimated GFR 10; Globulin 4.2 g/dL (2.4-3.5); Glucose 86 mg/dL (70-105); Magnesium 2.1 mg/dL (1.6-2.6); Potassium 3.4 mmol/L (3.5-5.1); Protein, Total 7.5 g/dL (6.0-8.3); Sodium 138 mmol/L (136-145)
[2024-09-27 16:08] LABS: Troponin I 0.021 ng/mL (< 0.028)
== END 2024-09-27 16:57 | disposition home or self-care (01) ==
LOC: ERS 12:17
DX: R06.02 Shortness of breath (principal); B20 Human immunodeficiency virus [HIV] disease; I13.2 Hypertensive heart and chronic kidney disease with heart failure and with stage 5 chronic kidney disease, or end stage renal disease; E11.22 Type 2 diabetes mellitus with diabetic chronic kidney disease; N18.6 End stage renal disease; I50.9 Heart failure, unspecified; Z99.2 Dependence on renal dialysis; Z55.6 Problems related to health literacy
CPT/HCPCS: 71045; 80053; 83735; 83880; 84145; 84484; 85025; 87428; 93005

== ENCOUNTER 2024-11-01 14:07 | Emergency (ER) | payer MEDICARE, OTHER ==
[2024-11-01 15:46] LABS: #Basophils 0.05 10x3/uL (0.0-0.2); #Eosinophils Less than 0.03 10x3/uL (0.0-0.7); %Basophils 0.3 % (0.0-1.0); %Lymphocytes 6.7 % (21.0-51.0); %Monocytes 8.1 % (0.0-10.0); %Neutrophils 84.3 % (42.0-75.0); Hematocrit 38.9 % (36.0-47.0); Hemoglobin 11.1 g/dL (12.0-16.0); Mean Corpuscular HGB CONC 28.5 g/dL (32.0-36.0); Mean Corpuscular Hemoglobin 24.3 pg (27.0-31.0); Mean Corpuscular Volume 85.3 fL (78.0-98.0); Mean Platelet Volume 10.3 fL (7.4-10.4); Platelet Count 216 10x3/uL (130-400); RBC Distribution Width 18.1 % (11.5-14.5); Red Blood Cell (RBC) Count 4.56 mill/uL (4.20-5.40)
[2024-11-01 15:58] LABS: ALT (SGPT) 5 U/L (8-55); AST (SGOT) 10 U/L (5-34); Albumin 3.1 g/dL (3.5-5.0); Alkaline Phosphatase 63 U/L (40-110); Anion Gap 14 mmol/L (10-20); BUN (Urea Nitrogen) 14 mg/dL (9.8-20.1); Calc. Creatinine Clearance 0 mL/min (70-130); Calcium 10.5 mg/dL (7.8-10.44); Carbon Dioxide 29 mmol/L (22-29); Chloride 99 mmol/L (98-107); Estimated GFR 11; Globulin 5.1 g/dL (2.4-3.5); Glucose 104 mg/dL (70-105); Lipase 14 U/L (8-78); Potassium 4.1 mmol/L (3.5-5.1); Protein, Total 8.2 g/dL (6.0-8.3); Sodium 138 mmol/L (136-145)
[2024-11-01 16:05] LABS: Hypochromia SLIGHT = 6-15 cells HPF (0-5); Platelet Adequacy Comment Platelets Normal; Polychromasia SLIGHT = 2-3 cells HPF (0-2)
[2024-11-01] MEDS ORDERED: Ondansetron PF 4 MG/2 ML Vial ONE (18:01)
[2024-11-01] MEDS ORDERED: fentaNYL 50 mcg/mL 1 mL Vial ONE (19:49)
[2024-11-01 20:10] LABS: INR-International Normal Ratio 1.3; PTT 42.3 sec (22.9-36.1); Prothrombin Time 15.9 sec (12.0-14.7)
[2024-11-01 20:14] LABS: Bilirubin Negative (Negative); Blood, Urine Trace (Negative); Glucose, Urine (Dipstick) Negative (Negative); Ketone, Urine Negative (Negative); Leukocyte Large (Negative); Nitrite Negative (Negative); Protein, Urine (Dipstick) 100 mg/dL (Neg-Trace); Urobilinogen 0.2 mg/dL (Less than 2); pH, Urine 8.5 (5.0-9.0)
[2024-11-01 20:17] LABS: Clarity Cloudy (Clear)
[2024-11-01 20:20] LABS: Bacteria/HPF 1+ HPF (None Seen); CAUTI Indications for Culture Pelvic or flank pain; RBC/HPF 0-3 HPF (0-3); WBC/HPF 0-3 HPF (0-3)
[2024-11-01 20:21] LABS: Urine Culture Reflex No No
[2024-11-01] MEDS ORDERED: cefTRIAXone (ROCEPHIN) 1 GM VIAL ONE (22:20)
[2024-11-01] MEDS ORDERED: Sodium Chloride 0.9% 100 ML ONE (22:20)
[2024-11-02 02:56] LABS: Hemoglobin 9.6 g/dL (12.0-16.0); Mean Corpuscular HGB CONC 29.1 g/dL (32.0-36.0); Mean Corpuscular Hemoglobin 24.7 pg (27.0-31.0); Mean Corpuscular Volume 84.8 fL (78.0-98.0); Mean Platelet Volume 10.3 fL (7.4-10.4); Platelet Count 186 10x3/uL (130-400); RBC Distribution Width 17.8 % (11.5-14.5); Red Blood Cell (RBC) Count 3.89 mill/uL (4.20-5.40)
[2024-11-02 03:34] LABS: Band 2 % (5-11); Hypochromia SLIGHT = 6-15 cells HPF (0-5); Lymphocytes 6 % (21-51); Monocytes 6 % (0-10); Neutrophil 84 % (42-75); Platelet Adequacy Comment Platelets Normal; Polychromasia MODERATE = 3-4 cells HPF (0-2); Reactive Lymphocytes 1 % (0-10)
[2024-11-02 04:13] LABS: Vacuoles MODERATE
== END 2024-11-02 04:24 | disposition short-term general hospital (02) ==
LOC: ERS 14:07
DX: I77.2 Rupture of artery (principal); I13.2 Hypertensive heart and chronic kidney disease with heart failure and with stage 5 chronic kidney disease, or end stage renal disease; N18.6 End stage renal disease; I50.9 Heart failure, unspecified; B20 Human immunodeficiency virus [HIV] disease; Z99.2 Dependence on renal dialysis
CPT/HCPCS: 74177; 80053; 81001; 83605; 83690; 85025; 85610; 85730; 93005; J0696; J2405; J3010; 36415; 96365; 96375

== ENCOUNTER 2024-12-02 10:19 | Outpatient (CLI) | payer MEDICARE, OTHER | END 2024-12-02 10:20 | disposition home or self-care (01) | LOC: BICMAMMO 10:19 | PROVIDERS: ATTEND Nurse Practitioner Family | DX: Z12.31 Encounter for screening mammogram for malignant neoplasm of breast (principal); R22.2 Localized swelling, mass and lump, trunk | CPT/HCPCS: 77063; 77067 ==

== ENCOUNTER 2025-07-16 05:32 | Emergency (ER) | payer MEDICARE, OTHER ==
[2025-07-16 07:30] LABS: Hematocrit 28.2 % (36.0-47.0); Hemoglobin 8.9 g/dL (12.0-16.0); Mean Corpuscular Hemoglobin 31.7 pg (27.0-31.0); Mean Corpuscular Volume 100.4 fL (78.0-98.0); Platelet Count 150 10x3/uL (130-400); Red Blood Cell (RBC) Count 2.81 mill/uL (4.20-5.40); White Blood Cell (WBC) Count 41.30 10x3/uL (4.8-10.8)
[2025-07-16 07:41] LABS: ALT (SGPT) Less than 7 U/L (Less than 34); AST (SGOT) 16 U/L (11-34); Albumin 3.6 g/dL (3.1-4.5); Alkaline Phosphatase 94 U/L (40-110); Anion Gap 21 mmol/L (10-20); BUN (Urea Nitrogen) 75 mg/dL (9.8-20.1); Bilirubin, Total 0.7 mg/dL (0.3-1.2); Calc. Creatinine Clearance 0 mL/min (70-130); Calcium 9.4 mg/dL (7.8-10.44); Carbon Dioxide 26 mmol/L (22-29); Chloride 96 mmol/L (98-107); Globulin 2.8 g/dL (2.4-3.5); Glucose 149 mg/dL (70-105); Potassium 3.3 mmol/L (3.5-5.1); Sodium 140 mmol/L (136-145)
[2025-07-16 07:52] LABS: Anisocytosis SLIGHT = 6-15 cells HPF (0-5); Macrocytosis SLIGHT = 6-15 cells HPF (0-5); Ovalocytes SLIGHT = 2-5 cells HPF (0-1); Platelet Adequacy Comment Platelets Normal; Poikilocytosis SLIGHT = 6-15 cells HPF (0-5); Polychromasia SLIGHT = 2-3 cells HPF (0-2); Target Cells SLIGHT = 2-5 cells HPF (0-1)
== END 2025-07-16 09:27 | disposition home or self-care (01) ==
LOC: ERS 05:32
DX: R55 Syncope and collapse (principal); R29.700 NIHSS score 0; I13.2 Hypertensive heart and chronic kidney disease with heart failure and with stage 5 chronic kidney disease, or end stage renal disease; I50.9 Heart failure, unspecified; N18.6 End stage renal disease; Z99.2 Dependence on renal dialysis
CPT/HCPCS: 71045; 80053; 83605; 83880; 84484; 85025; 85060; 87428; 93005; 94760

== ENCOUNTER 2025-07-19 11:01 | Emergency (ER) | payer MEDICARE ==
[2025-07-19 12:11] LABS: Hematocrit 27.9 % (36.0-47.0); Hemoglobin 9.2 g/dL (12.0-16.0); Mean Corpuscular Hemoglobin 31.7 pg (27.0-31.0); Mean Corpuscular Volume 96.2 fL (78.0-98.0); Platelet Count 35 10x3/uL (130-400); Red Blood Cell (RBC) Count 2.90 mill/uL (4.20-5.40); White Blood Cell (WBC) Count 9.12 10x3/uL (4.8-10.8)
[2025-07-19 12:14] LABS: ALT (SGPT) Less than 7 U/L (Less than 34); AST (SGOT) 14 U/L (11-34); Albumin 3.6 g/dL (3.1-4.5); Alkaline Phosphatase 89 U/L (40-110); Anion Gap 20 mmol/L (10-20); BUN (Urea Nitrogen) 39 mg/dL (9.8-20.1); Bilirubin, Total 1.8 mg/dL (0.3-1.2); Calc. Creatinine Clearance 0 mL/min (70-130); Calcium 9.9 mg/dL (7.8-10.44); Carbon Dioxide 21 mmol/L (22-29); Chloride 100 mmol/L (98-107); Globulin 2.7 g/dL (2.4-3.5); Glucose 112 mg/dL (70-105); Potassium 3.4 mmol/L (3.5-5.1); Sodium 138 mmol/L (136-145)
[2025-07-19 12:35] LABS: Anisocytosis SLIGHT = 6-15 cells HPF (0-5); Burr Cells SLIGHT = 2-5 cells HPF (0-1); Platelet Adequacy Comment Platelets Decreased; Polychromasia SLIGHT = 2-3 cells HPF (0-2); Target Cells SLIGHT = 2-5 cells HPF (0-1)
[2025-07-19] MEDS ORDERED: Acetaminophen 500 MG TAB ONE (13:51)
[2025-07-19] MEDS ORDERED: diphenhydrAMINE 50 MG/ML VIAL ONE (14:06)
[2025-07-19] MEDS ORDERED: Metoclopramide HCl 10 MG (2 mL) VIAL ONE (14:06)
== END 2025-07-19 17:27 | disposition home or self-care (01) ==
LOC: ERS 11:01
DX: I95.9 Hypotension, unspecified (principal); I13.2 Hypertensive heart and chronic kidney disease with heart failure and with stage 5 chronic kidney disease, or end stage renal disease; I50.9 Heart failure, unspecified; N18.6 End stage renal disease; Z99.2 Dependence on renal dialysis; Z21 Asymptomatic human immunodeficiency virus [HIV] infection status
CPT/HCPCS: 70450; 71045; 80053; 83605; 84484; 85025; 93005; 94760; J1200; J2765; 36415; 96361; 96365; 96375

== ENCOUNTER 2025-10-25 15:27 | Outpatient (CLI) | payer MEDICARE, OTHER | END 2025-10-25 15:28 | disposition home or self-care (01) | LOC: BICRAD 15:27 | PROVIDERS: ATTEND Nurse Practitioner Family | DX: I50.22 Chronic systolic (congestive) heart failure (principal); N25.81 Secondary hyperparathyroidism of renal origin | CPT/HCPCS: 71046 ==